=== PATIENT | male | born 1995 | race Caucasian/White ===

== ENCOUNTER 2025-05-24 17:54 | Emergency (ER) | payer OTHER, BC, SELFPAY ==
--- NOTE | ~2025-05-24 | XR_ITS ---
EXAMINATION: XR hand LT 2V, 05/24/2025 18:05 [facility] HISTORY: PAIN SWELLING, pain to lateral aspect COMPARISON: No comparisons available. Findings: No acute fracture or malalignment. No significant degenerative changes. Soft tissues unremarkable. Impression: No acute fracture or malalignment. Reviewed, dictated and finalized at location [facility] Impression: No acute fracture or malalignment.
[2025-05-24 17:59] VITALS: BP 134/91; PULSE 91; RESP 15; TEMP 36.4; O2SAT 99
--- NOTE | 2025-05-24 20:13 | ED_ITS ---
HPI - Extremity Injury (Upper) General Chief Complaint: Extremity Injury, Upper Stated Complaint: left hand injury Time Seen by Provider: 05/24/25 18:56 Source: patient Mode of arrival: ambulatory Limitations: no limitations History of Present Illness HPI narrative: This is a 29 year old male that presents to the ER for injury to the left hand. Reports he was detaining a suspect. Reports pain and bruising to the 4th and 5th metatarsal area. Related Data Allergies Allergy/AdvReac Type Severity Reaction Status Date / Time No Known Allergies Allergy Verified 05/24/25 17:58 Review of Systems Review of Systems: All systems reviewed & are unremarkable except as noted in HPI and below Exam Narrative: GENERAL: Well-appearing, well-nourished, and in no acute distress. HEAD: Normocephalic, atraumatic. EYES: EOMI. EXTREMITIES: Normal range of motion. No edema or obvious deformity. Bruising over the left 5th metatarsal. Normal radial pulse SKIN: Warm, dry, no rash. NEURO: No focal deficits. Alert and oriented x3. PSYCH: Normal mood and affect Course Vital Signs Vital signs: Vital Signs Temperature 97.6 F 05/24/25 17:59 Pulse Rate 91 05/24/25 17:59 Respiratory Rate 15 05/24/25 17:59 Blood Pressure 134/91 H 05/24/25 17:59 Pulse Oximetry 99 05/24/25 17:59 Oxygen Delivery Room Air 05/24/25 17:59 Temperature 97.6 F 05/24/25 17:59 Pulse Rate 91 05/24/25 17:59 Respiratory Rate 15 05/24/25 17:59 Blood Pressure 134/91 H 05/24/25 17:59 Pulse Oximetry 99 05/24/25 17:59 Oxygen Delivery Room Air 05/24/25 17:59 MDM - Extremity Injury (Upper) MDM Narrative Medical decision making narrative: Patient presents to the ER for left hand injury. He is neurovascularly intact. Left hand x-ray without acute fracture. Discharged with PCP follow up Differential Diagnosis Differential diagnosis: Likely fracture of hand and other (contusion) Imaging Data Radiologist's impression: ITS Impressions Hand X-Ray 05/24/25 18:46 Impression: No acute fracture or malalignment. Critical Care Time Critical Care Time Critical Care Time: No Discharge Plan Discharge Clinical Impression: Contusion of hand, left Qualifiers: Encounter type: initial encounter Qualified Code(s): S60.222A - Contusion of left hand, initial encounter Patient Disposition: Home Condition: Stable Instructions: Contusion in Adults (ED) Additional Instructions: Return to the ER if you experience fever, redness and swelling of your extremity, numbness or any other symptoms that are concerning to you Wear ADRYAN wrap. Ice and elevate extremity. Tylenol or ibuprofen as needed for pain Follow up with your doctor for further care. Patient Language: [place] Follow-up/Referrals: UNKNOWN,DOCTOR [Primary Care Provider]
== END 2025-05-24 20:22 | disposition home or self-care (01) ==
PROVIDERS: Emergency Provider Physician Assistant
DX: S60.222A Contusion of left hand, initial encounter (principal); Y35.811A Legal intervention involving manhandling, law enforcement official injured, initial encounter
CPT/HCPCS: 73120; 99283